=== PATIENT | male | born 1995 | race Caucasian/White ===

== ENCOUNTER 2017-11-28 12:31 | Emergency (ER) | payer OTHER ==
[~2017-11-28] VITALS: Ht 190.5 cm; Wt 106.8 kg
[2017-11-28 12:35] VITALS: TEMP 36.9; Ht 190.5 cm; Wt 106.8 kg
--- NOTE | 2017-11-28 13:19 | DIAGNOSTIC IMAGING REPORT ---
CHEST 2 VIEWS ROUTINE HISTORY: 22 years-old Male cough, hemoptysis acute cough with hemoptysis COMPARISON: None available TECHNIQUE: PA and lateral views of the chest FINDINGS: Cardiomediastinal and hilar silhouettes are within normal limits. No pneumothorax, pleural effusion, focal airspace consolidation or overt pulmonary edema. The bones of the chest appear grossly intact. IMPRESSION: No acute process. The above report was generated using voice recognition software. It may contain grammatical, syntax or spelling errors. Electronically signed by: Richard Gayle M.D. 11/28/2017 1:17 PM Dictated Date/Time: 11/28/2017 1:16 PM
[2017-11-28] MEDS ORDERED: AMOX875T PO (13:58)
[2017-11-28 14:10] VITALS: BP 127/88; PULSE 72; O2SAT 95
--- NOTE | 2017-11-28 14:51 | EMERGENCY ROOM VISIT NOTE ---
History First contact with patient: 12:49 Chief Complaint: CONGESTION Stated Complaint: CHEST CONGESTION,COUGHING UP BLOOD Nursing Triage Summary: on saturday pt seen at [facility] and placed on generic Sudafed pt reports now having a cough History of Present Illness The patient is a 22 year old male who presents to the Emergency Room with complaints of an admit and sinus congestion and cough. The patient reports that he noticed some blood in his phlegm today. The patient reports that he was seen at [facility] 3 days ago, and encouraged to take Sudafed for his symptoms. The patient denies any fevers or chills. He does report congestion of the maxillary sinuses. He has also had some drainage from the nose with lots of postnasal drip. He denies any productive cough, chest pain or back pain. He denies any pain. Review of Systems 10 system review was performed and was negative except for pertinent positives and negatives as indicated in history of present illness Past Medical/Surgical History Medical Problems: (1) No significant past medical history Surgical Problems: (1) No history of previous surgery Family History No significant family history Social History Smoking Status: Never Smoker Alcohol Use: none Marital Status: single Occupation Status: [employer] Current/Historical Medications Scheduled Amoxicillin & Pot Clavulanate (Augmentin 875-125 mg), 1 TAB PO BID Physical Exam Vital Signs Date Time Temp Pulse Resp B/P (MAP) Pulse Ox O2 Delivery O2 Flow Rate FiO2 11/28/17 14:10 72 127/88 95 11/28/17 12:37 97 Room Air 11/28/17 12:35 36.9 99 20 147/81 95 Room Air Physical Exam CONSTITUTIONAL: Healthy and well nourished. Alert and oriented X 3 with positive affect. Patient does not appear acutely or toxic. HEENT: Normocephalic, atraumatic. Pupils equal, round and reactive. No conjunctival injection or scleral icterus. Ears and nares are clear. OROPHARYNX: Mild postnasal drip noted with posterior pharyngeal erythema. No tonsillar hypertrophy or exudates. NECK: Full active range of motion without discomfort. No nuchal rigidity. RESPIRATORY: Clear to auscultation bilaterally with no wheezing, crackles, rhonchi or stridor. CARDIOVASCULAR: Regular rate and rhythm with no murmurs, rubs or gallops. INTEGUMENTARY: No rash or other significant dermatologic conditions noted. NEUROLOGIC: No focal neurologic deficits noted. Medical Decision & Procedures ER Provider Diagnostic Interpretation: My interpretation of a two-view chest x-ray does not show any consolidations, suspicious pulmonary lesions, pneumothorax or cardiomegaly. Radiologist report is as follows: CHEST 2 VIEWS ROUTINE HISTORY: 22 years-old Male cough, hemoptysis acute cough with hemoptysis COMPARISON: None available TECHNIQUE: PA and lateral views of the chest FINDINGS: Cardiomediastinal and hilar silhouettes are within normal limits. No pneumothorax, pleural effusion, focal airspace consolidation or overt pulmonary edema. The bones of the chest appear grossly intact. IMPRESSION: No acute process. ED Course Patient history and physical exam were performed. Nurse's notes were reviewed. Vital signs were reviewed. The patient is afebrile, and O2 saturation is 95% on room air. The patient is not tachycardic. A two-view chest x-ray was normal. Clinical history and physical exam is most consistent with acute sinusitis. The patient was provided a prescription for Augmentin. He may continue with Sudafed as needed for additional relief. Ibuprofen or Tylenol as needed for pain or fever. The patient was encouraged to follow-up with [facility] as needed if symptoms persist. At the time of discharge, he female friend with the patient reported that her father is a surgeon, and is concerned that the patient may have tuberculosis. The patient denies any risk factors or tuberculosis exposure. I again explained that the patient's symptoms are most consistent with sinusitis. If his symptoms do not improve, he may discuss the case further with [facility]. The patient's nurse also explained that we do not perform tuberculosis skin testing as a reread would need to be performed within 2-3 days. The patient was also advised that his chest x-ray was normal. Medical Decision Medication Reconcilliation Current Medication List: was personally reviewed by me Blood Pressure Screening Patient's blood pressure: Normal blood pressure Impression Primary Impression: Acute sinusitis Departure Information Dispostion Home / Self-Care Prescriptions Amoxicillin & Pot Clavulanate (Augmentin 875-125 mg) 1 Tab Tab 1 TAB PO BID for 10 Days, #20 TAB Prov: Charles Jansen PA 11/28/17 Forms HOME CARE DOCUMENTATION FORM, IMPORTANT VISIT INFORMATION Patient Instructions My [facility], ED Sinusitis Abx Tx Additional Instructions Complete all Augmentin antibiotics as prescribed. You may continue with Sudafed as needed for additional congestion relief. Remain well-hydrated. Ibuprofen or Tylenol as needed for pain. Follow-up with [facility] if symptoms are not improving within the next 5-7 days. Problem Qualifiers Primary Impression: Acute sinusitis Sinusitis location: maxillary Recurrence: non-recurrent Qualified Codes: J01.00 - Acute maxillary sinusitis, unspecified
== END 2017-11-28 14:12 | disposition home or self-care (01) ==
LOC: C.EDB 12:33 → C.EDD 14:12
DX: J01.00 Acute maxillary sinusitis, unspecified (principal)